=== PATIENT | male | born 1985 | race Caucasian/White ===

== ENCOUNTER 2017-02-09 22:49 | Emergency (ER) | payer OTHER ==
[~2017-02-09] VITALS: Ht 185.4 cm; Wt 70.5 kg
[2017-02-09 23:00] VITALS: BP 116/79; PULSE 96; RESP 16; O2SAT 97
--- NOTE | 2017-02-09 23:23 | ED.REPORT ---
HPI-Extremity Problem Upper Date of Service Feb 09, 2017 ED Provider: Navdeep Donahue MD Pt is a 31 year old male who presents to the ED c/o a laceration to his left wrist onset 2144. He was at work at [employer] when he reached for some glass cups and they fell down and cut his wrist. He denies numbness/tingling in his hand. Nursing Notes Stated Complaint: R WRIST CUT/INJURY Chief Complaint: Laceration Nursing Notes Reviewed: Yes Allergies: Coded Allergies: cephalexin (Verified Allergy, Unknown, nausea, 02/09/17) doxycycline (Verified Allergy, Unknown, nausea, 02/09/17) lorazepam (Verified Allergy, Unknown, Nausea, 02/09/17) General Time Seen by MD: 23:21 Chief Complaint Wrist injury left Hx Obtained From: Patient Arrived By: Walk-in Onset Occurred: 1 - 4 hours ago Quality: Painful Severity: Current: Mild Severity: Maximum: Mild Recent Healthcare: No recent doctor visit, No recent hospitalization Similar Sx Previous: No Past Medical History Past Medical History Migraines Seizures Past Surgical History Vastectomy Reports: Appendectomy Smoking History Former Smoker Social History does vaping Alcohol Use: 1-3 per day Drug Use: THC Other Social History: Good social support Occupation lives with girlfriend works at [employer] Status Independent Review of Systems Laceration to left wrist Musculoskeletal: Reports: Extremity pain Neurologic: Denies: Numbness Complete sys rev & neg: except as marked. Physical Exam Initial Vital Signs Vital Signs (First) Date Time Temp Pulse Resp B/P Pulse Ox O2 Delivery O2 Flow Rate FiO2 02/09/17 23:00 36.8 96 16 116/79 97 Room Air Initial VS: Reviewed, Vital signs normal Head / Eyes: Atraumatic, Normocephalic Neck: Supple, Full range of motion Respiratory: No respiratory distress Lower Extremities: Vascular intact, Neuro intact, No swelling, No tenderness Skin: Warm, Dry, No cyanosis Neurologic: Alert, Oriented, Nonfocal Psychiatric: Mood/affect normal, Behavior normal, Normal thought content General/Constitutional: Awake, Alert Upper Extremity / MS: Full range of motion, Neurologic intact, Vascular intact 1.4 cm laceration to the radial aspect of left wrist No foreign body No tendon involvement Procedures Laceration Management Laceration Management: No foreign body No tendon involvement Time: 23:27 Procedure Performed by: ED physician Consent / Setup / Site Prep: Informed consent provided, Consent from patient , Time-out performed, Hand hygiene observed, Stand sterile technique Location of Wound: 1.4 cm to left wrist Local Anesthesia: Lidocaine 1% Wound Preparation: Shurclens, Normal saline Irrigation: Copious Repair Skin: ___ O (5), Nylon # Sutures - Skin: 2 Suture Technique: Simple Post-Procedure / Complications: Antibiotic oint applied, No complications, Condition improved, Tolerated procedure well, Patient stable Re-Eval/Medical Decision Med Decision/Clinical Course Uncomplicated laceration without evidence of foreign body or injury to vital structures. Source of Hx: Old records Re-Evaluation/Progress : Time of Eval: 23:25 Re-Evaluation/Progress Note: Pt rechecked. Performed laceration management. Discussed plan for discharge. Patient understands and agrees with plan. F/U instructions and RTER warnings given. All questions addressed at this time. Counseled Regarding: Diagnosis, Lab results, Need for follow-up, When/why to return to ED Discharge & Departure Impression: Primary Impression: Wrist laceration Encounter type: initial encounter Laterality: right Qualified Code: S61.511A - Laceration without foreign body of right wrist, initial encounter Disposition: Home Discharge Condition All VS Reviewed: Yes Condition: Stable Patient Instructions: Laceration (ED) Additional Instructions: Keep it clean and dry. Okay to wash it but do not soak it. No dishwashing, hot tub, or scuba diving. Stitches out in 7-10 days. Follow-up sooner if there is any evidence of infection. Referrals: Ramsey Wise MD (PCP) Scribe Attestation Portions of this note were transcribed by aLkia Lopez. I, Dr. Donahue, personally performed the history, physical exam and medical decision-making; I reviewed and confirmed the accuracy of the information in the transcribed note. copies to: Ramsey Wise MD, Howard L MD Feb 09, 2017 23:23 Lakia Lopez Feb 09, 2017 23:30
[2017-02-09] MEDS ORDERED: EPINEPHRINE NERVEBLOCK ONE (23:35)
[2017-02-09] MEDS ORDERED: LIDOCAINE 1.5% NERVEBLOCK ONE (23:35)
[2017-02-10 00:15] VITALS: BP 120/7; PULSE 88; RESP 16; O2SAT 98
== END 2017-02-09 23:55 | disposition home or self-care (01) ==
LOC: SED 22:49
DX: S61.511A Laceration without foreign body of right wrist, initial encounter (principal); W25.XXXA Contact with sharp glass, initial encounter; Y93.89 Activity, other specified; Y92.69 Other specified industrial and construction area as the place of occurrence of the external cause; Y99.0 Civilian activity done for income or pay; G43.909 Migraine, unspecified, not intractable, without status migrainosus; Z87.891 Personal history of nicotine dependence; Z88.1 Allergy status to other antibiotic agents; Z88.5 Allergy status to narcotic agent